=== PATIENT | female | born 1990 | race Caucasian/White ===

== ENCOUNTER 2017-04-22 08:03 | Emergency (ER) | payer OTHER ==
[2017-04-22 09:12] LABS: BASO # 0.1 K/uL (0.0-0.2); BASO % 0.5 % (0.0-2.0); EOS # 0.1 K/uL (0.0-0.7); HEMOGLOBIN 11.2 g/dL (11.0-16.0); LYMPH # 1.8 K/uL (1.0-4.3); LYMPH % 19.4 % (20.0-40.0); MEAN CELL VOLUME 80.5 fL (81.0-99.0); MEAN CORPUSCULAR HEMOGLOBIN 27.6 pg (27.0-31.0); MEAN CORPUSCULAR HGB CONC 34.3 g/dL (33.0-37.0); MEAN PLATELET VOLUME 10.3 fL (7.2-11.7); MONO # 0.5 K/uL (0.0-0.8); MONO % 5.7 % (0.0-10.0); NEUT # 6.8 K/uL (1.8-7.0); NEUT % 73.4 % (50.0-75.0); NRBC % 0.2 % (0.0-2.0); RBC 4.05 Mil/uL (3.80-5.20); RED CELL DISTRIBUTION WIDTH 15.1 % (11.5-14.5); WHITE BLOOD COUNT 9.3 K/uL (4.8-10.8)
[2017-04-22 09:17] LABS: SQUAMOUS EPITHIAL 4 /hpf (0-5); URINE BILIRUBIN NEGATIVE (NEGATIVE); URINE BLOOD NEGATIVE (NEGATIVE); URINE CLARITY Hazy (Clear); URINE COLOR Yellow (YELLOW); URINE GLUCOSE (UA) NORMAL (Normal); URINE LEUKOCYTE ESTERASE NEG Leu/uL (Negative); URINE NITRATE NEGATIVE (NEGATIVE); URINE PROTEIN NEGATIVE (NEGATIVE); URINE UROBILINOGEN NORMAL mg/dL (0.2-1.0)
[2017-04-22 09:23] LABS: ALB/GLOB RATIO 0.9 (1.0-2.1); ALBUMIN 3.5 g/dL (3.5-5.0); ALT/SGPT 20 U/L (9-52); AST/SGOT 15 U/L (14-36); BLOOD UREA NITROGEN 7 mg/dL (7-17); CALCIUM 9.1 mg/dl (8.6-10.4); GFR AFRICAN-AMERICAN > 60; GFR NON-AFRICAN AMERICAN > 60; URIC ACID 4.1 mg/dL (2.2-7.5)
[2017-04-22 09:30] LABS: PROTHROMBIN TIME 10.8 SECONDS (9.7-12.2)
[2017-04-22 14:40] VITALS: BP 124/90; PULSE 81; RESP 18; TEMP 97.8; O2SAT 100
--- NOTE | 2017-04-22 21:34 | OBHP ---
Datetime: 04/22/2017 08:59 Admit Comment, IP Provider: CC: "Dr. Sol told me to come in for elevated blood pressure." HPI: Patient is a 27 year old female (NORBETRO: 05/02/17, FDLMP: 07/26/16) at 38 weeks and 4 days who is presenting today after seeing Dr. Sol in his office. She was noted to have an elevated blood pr essure and he asked her to come to the hospital for evaluation. She denies any headache, changes in v ision, blurry vision, light headeness, or abdominal pain. Patient has been feeling the baby move. Pat ient denies contractions or vaginal bleeding/discharge. 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 Sol's office 1. afebrile, stable 2. EFM and TOCO 3. f/u labs- CBC, CMP, LDH, Coags, Uric acid, Urinalysis 4. monitor bp Nereyda Ren, PGY1 0945 hours: labs resulted - all wnl; urine protein negative. BP 132/86; 128/90, 122/87. This all D /W Dr. Sol. Patient is cleared for discharge home. F/U with him in one week. S/S pre-eclampsia and labor reviewed. Extremities - PN: Normal Abdomen - PN: Normal Lungs - PN: Normal Heart - PN: Normal General - PN: Normal Comments, ACOG Physical Exam: Abdomen: nontender, fundus firm at 37cm Vital Signs Provider: Reviewed
== END 2017-04-22 10:12 | disposition home or self-care (01) ==
LOC: C.EROB 08:03
DX: O26.893 Other specified pregnancy related conditions, third trimester (principal); R03.0 Elevated blood-pressure reading, without diagnosis of hypertension; Z3A.38 38 weeks gestation of pregnancy

== ENCOUNTER 2017-05-04 11:00 | Inpatient (IN) | payer OTHER ==
[2017-05-04] MEDS ORDERED: Lactated Ringer's 1,000 ML IV SCH ×2 (11:45)
--- NOTE | 2017-05-04 12:12 | OBHP ---
Datetime: 05/04/2017 11:48 IP Adm Impression: Postterm, intrauterine ; No Active Labor; Intact Membranes IP Admit Plan: Admit to unit; Initiate labor protocol IP Admit Plan Other: Cervical ripening Admit Comment, IP Provider: 27 y.o. , LMP 07/26/16, NORBERTO 05/02/17, EGA 40w 2d reports abdominal ti ghtening/ discomfort. (+) AFM; denies LOF, VB. care: Dr. Sol: noted for evaluation for ab dominal itchihng and concern for elevated BP reading approximately 1 month ago. Currently, denies he adaches, blurred vision, epigastric or RUQ pain. Deines any significant weight gain in the space of 1 week intervals. P Ob: Primip P TUNNEL MINER: 12 x 28 x 7. Denies h/o Abnormal Pap, ovarian cysts, fibroids or STIs PMH: denies PSH: denies NKDA Meds: PNV; iron - QD Soc Hx: denies tobacco, illicit drug or EtOH use. x 3 years. Works as a pharmacist @ [employer] Fam Hx: Mother alive 53 - no med issues. Father alive 62 - dyslipidemia. No knonwn fam h/l cancer. P.E.: as above. Mildly obese in NAD. Awake, alert, oriented to time, person and place. Pleasant a nd cooperative. Accompanied by Assessment: 27 y.o. P0, 40w 2d, prolonged latent phase of labor. High normal BP noted. Category 1 tracing. D/W patient: cervical ripening, possible augmentation, pain management - patient receptiv e to epidural. Patient is clinically stable. Plan: 1) Admit 2) NPO 3) Admission labs 4) Continuous EFM 5) Cervidil 6) Possible pitocin 7) Probable epidrual 8) Anticipate vaginal delviery - as per, and discussed with, Dr. Sol Addendum: 1210 hours: cervidil placed in posterior vaginal vault. Pelvic Type - PN: Adequate Extremities - PN: Normal Abdomen - PN: Normal Back - PN: Normal Breast - PN: Not Done Lungs - PN: Normal Heart - PN: Normal Thyroid - PN: Not Done Neurologic - PN: Normal HEENT - PN: Normal General - PN: Normal Weight - Estimated: 3405 Presentation-Admit: Vertex FHR - Baseline A Provider: 135 Contraction Comments Provider: irregular Comments, ACOG Physical Exam: Abdomen: Gravid. Soft. Non tender in all quadrants. Fundal height 39 cm All other systems reviewed and are negative Gestation - Est Wks by US: 40w 2d IP Hx Assessment: The History has been Reviewed and is Current EGA AdmitDate IP: 40.2 Vital Signs Provider: Reviewed IP Chief Complaint: Maternal discomfort NICHD Variability Prov Fetus A: Moderate 6-25bpm NICHD Accel Fetus A IP Provider: 15X15 FHR Category Provider Fetus A: Category I NICHD Decel Fetus A IP Provider: None Dilatation, Provider: 1-2 Effacement, Provider: 30 Station, Provider: -3 Genitourinary Exam: Normal DTRs - PN: Normal
[2017-05-04 12:23] LABS: BASO % 0.5 % (0.0-2.0); EOS # 0.1 K/uL (0.0-0.7); EOS % 0.8 % (0.0-4.0); HEMOGLOBIN 11.2 g/dL (11.0-16.0); LYMPH # 1.4 K/uL (1.0-4.3); LYMPH % 18.8 % (20.0-40.0); MEAN CELL VOLUME 81.3 fL (81.0-99.0); MEAN CORPUSCULAR HEMOGLOBIN 28.2 pg (27.0-31.0); MEAN CORPUSCULAR HGB CONC 34.7 g/dL (33.0-37.0); MEAN PLATELET VOLUME 10.3 fL (7.2-11.7); MONO # 0.4 K/uL (0.0-0.8); NEUT # 5.5 K/uL (1.8-7.0); NEUT % 73.9 % (50.0-75.0); NRBC % 0.1 % (0.0-2.0); RBC 3.98 Mil/uL (3.80-5.20); RED CELL DISTRIBUTION WIDTH 15.8 % (11.5-14.5); WHITE BLOOD COUNT 7.5 K/uL (4.8-10.8)
[2017-05-04 12:36] LABS: SQUAMOUS EPITHIAL 17 /hpf (0-5); URINE BACTERIA OCC (<OCC); URINE BILIRUBIN NEGATIVE (NEGATIVE); URINE BLOOD NEGATIVE (NEGATIVE); URINE CLARITY Turbid (Clear); URINE COLOR Yellow (YELLOW); URINE GLUCOSE (UA) NORMAL (Normal); URINE LEUKOCYTE ESTERASE 2+ Leu/uL (Negative); URINE NITRATE NEGATIVE (NEGATIVE); URINE PROTEIN 2+ mg/dL (NEGATIVE)
[2017-05-04 12:50] LABS: ALB/GLOB RATIO 0.9 (1.0-2.1); ALBUMIN 3.4 g/dL (3.5-5.0); ALT/SGPT 18 U/L (9-52); AST/SGOT 18 U/L (14-36); BLOOD UREA NITROGEN 7 mg/dL (7-17); CALCIUM 8.7 mg/dl (8.6-10.4); GFR AFRICAN-AMERICAN > 60; GFR NON-AFRICAN AMERICAN > 60
[2017-05-04 15:16] LABS: URIC ACID 5.2 mg/dL (2.2-7.5)
[2017-05-04 15:28] LABS: INR 0.9; PROTHROMBIN TIME 10.4 SECONDS (9.7-12.2)
--- NOTE | 2017-05-04 22:44 | OBPN ---
Datetime: 05/04/2017 22:35 IP Procedures: Sterile Vag Exam IP Progress Plan: Continue present management; Augmentation; Anticipate Vaginal Delivery Membranes, Provider: Intact Contraction Comments Provider: irregular FHR - Baseline A Provider: 130 Gestation - Est Wks by US: 40w 2d IP Progress Note Comment: Cervidil fell out of vagina while patient on bed agrawal. Cervical exam: as above. Assessment: 27 y.o. P0, 40w 2d, IOL S/P cervidil - cervical change noted. Variable deceleration n oted - good recovery; good variability. Patient is clinically stable. Plan: 1) Pain medication, upon request 2) Start pitocin 3) Anticipate vaginal delivery - As per Dr. Sol Vital Signs Provider: Reviewed; Within Normal Limits NICHD Accel Fetus A IP Provider: 15X15 FHR Category Provider Fetus A: Category I NICHD Variability Prov Fetus A: Moderate 6-25bpm Dilatation, Provider: 2-3 Effacement, Provider: 50 Station, Provider: -3 NICHD Decel Fetus A IP Provider: Variable Datetime: 05/04/2017 11:48 Weight - Estimated: 3405 Presentation-Admit: Vertex
[2017-05-05] MEDS ORDERED: Oxytocin 30 UNIT 30 UNITS/500 ML BAG IV PRN ×2 (01:00)
[2017-05-05] MEDS ORDERED: Bupivacaine HCl/FentaNYL Cit 0 ML EPI ONE (07:41)
[2017-05-05] MEDS ORDERED: Bupivacaine HCl/FentaNYL Cit 100 ML EPI ONE (08:30)
[2017-05-05] MEDS ORDERED: Sodium Citrate/Citric Acid 15 ml Sol ONE (11:51)
[2017-05-05] MEDS ORDERED: Sodium Citrate/Citric Acid 15 ml Sol PO ONE (12:11)
[2017-05-05] MEDS ORDERED: Bupivacaine HCl 0.25% PF (10 ml) Inj ONE ×2 (12:24→13:23)
[2017-05-05] MEDS ORDERED: Lidocaine 2% MPF (5 ml) Inj ONE (12:24)
[2017-05-05] MEDS ORDERED: Morphine 1 mg/ml preservative-free Inj(Duramorph) ONE (12:43)
[2017-05-05] MEDS ORDERED: Oxytocin 20 units in LR 2,000 ML IV ONE (12:48)
[2017-05-05] MEDS ORDERED: Oxytocin 10 Units/ml Inj ONE (12:48)
[2017-05-05] MEDS ORDERED: cefOXitin 2 GM in Sodium Chloride 0.9% 100 ML IVPB ONE (13:00)
[2017-05-05] MEDS ORDERED: cefOXitin IV 2 gm in Dextrose 2 GM/50 ML BAG IVPB ONE (13:00)
[2017-05-05] MEDS ORDERED: Midazolam 2 MG/2 ML VIAL ONE (13:34)
[2017-05-05] MEDS ORDERED: Ketamine 50 mg/ml Inj (10 ml) ONE (13:34)
[2017-05-05] MEDS ORDERED: Oxycodone/Acetaminophen 5/325 mg Tab PO PRN ×2 (14:08)
[2017-05-05] MEDS ORDERED: Naloxone 0.4 mg/ml Inj (Adult) IVP PRN (14:25)
[2017-05-05] MEDS ORDERED: DiphenhydrAMINE 50 mg/ml Inj IVP PRN (14:25)
[2017-05-05] MEDS: Simethicone 80 mg Chewtab PO SCH ×2 (17:39→22:00)
[2017-05-05] MEDS ORDERED: cefOXitin IV 2 gm in Saline 2 GM in Sodium Chloride 0.9% 50 ML IV SCH (18:30)
[2017-05-05] MEDS ORDERED: cefOXitin 2 GM in Sodium Chloride 0.9% 100 ML IV SCH (20:00)
[2017-05-05] MEDS: cefOXitin 2 GM in Sodium Chloride 0.9% 100 ML IV SCH (22:19)
--- NOTE | 2017-05-05 23:40 | HP ---
HISTORY OF PRESENT ILLNESS: The patient is a 27-year-old female 1, para 0 with due date of 05/02/2017, at 40 weeks 5 days, who is undergoing an elective induction. The patient started developing slight decelerations at 3 cm with poor progress in labor. The patient is undergoing lower segment section for failure to progress and a category 2 tracing. course has been essentially unremarkable. CURRENT MEDICATIONS: Vitafol Ultra one tablet daily. MEDICAL HISTORY: Unremarkable. SOCIAL HISTORY: She does not smoke or drink. PHYSICAL EXAMINATION: VITAL SIGNS: Her blood pressure is 110/70, pulse is 72, respiratory rate of 20, temperature is 98.8. HEAD, EYES, EARS,NOSE AND THROAT: Examinations are within normal. CHEST: Clear. CARDIAC: Reveals normal heart sounds without any murmurs. LUNGS: Clear. BREASTS: Revealed no masses. ABDOMEN: Soft. Symphyseal-fundal height is 38 cm, longitudinal lie vertex. heart tones are normal. PELVIC: Cervix is 3 cm, 80% effaced, -2 station, clear fluid. ADMITTING DIAGNOSES: Intrauterine at 40 weeks 5 days with failure to progress, nonreassuring tracing. PLAN: To perform a lower segment section. Prior to being scheduled for the surgical procedure, the patient underwent an informed consent, discussion and education session with me in the hospital lasting approximately 45 minutes, during which time I explained within understandable terms the following, the nature and extent of her disease process and the nature and extent of the contemplated operation. Also explained were the risks and potential complications of the operative procedures to include, but not limited to infection, hemorrhage, deep vein thrombosis, atelectasis, pneumonia, pulmonary embolism, damage to the bladder, damage to the ureter, renal insufficiency, renal failure, wound infection, wound dehiscence, incisional hernia, keloid formation, damage to large and small intestine, damage to inferior vena cava and the aorta requiring extensive repair, anesthesia complications, electrolyte imbalance, possibility of , low scores, breathing difficulties in the baby and other complications that were discussed, but are not listed above. I also discussed with the patient the anticipated benefits and results of the surgery including a conservative estimate of the successful outcome. I discussed with the patient about the operation that are not accomplished. I informed the patient of the possibility of unanticipated pathology requiring a more extensive procedure. All of the questions from the patient were encouraged, welcomed and answered to her satisfaction. The patient was given the opportunity to store her own blood for using in autologous blood transfusion prenatally and she had declined. Albertina Cunha MD
--- NOTE | 2017-05-05 23:59 | OP ---
PROCEDURE DATE: 05/04/2017 PREOPERATIVE DIAGNOSES: Intrauterine at 40 weeks, category II tracing, failure to progress. POSTOPERATIVE DIAGNOSES: Intrauterine at 40 weeks, category II tracing, failure to progress. PROCEDURE: Lower segment section. FINDINGS: A live female infant, Apgars 9 at 1 minute and 9 at 5 minutes with normal tubes and ovaries. SURGEON: Albertina Cunha M.D. QA AUDITOR: Mukesh Florian MD. ANESTHESIA: Epidural. ESTIMATED BLOOD LOSS: 400 mL. COMPLICATIONS: Nil. DESCRIPTION OF PROCEDURE: After the risks, benefits, and alternatives of the planned procedures including but not limited to infection, hemorrhage, deep vein thrombosis, atelectasis, pneumonia, pulmonary embolism, damage to the bladder, damage to the ureter, renal insufficiency, renal failure, wound infection, wound dehiscence, incisional hernia, keloid formation, damage to large and small intestines, damage to inferior vena cava and aorta requiring extensive repair, anesthesia complications, electrolyte imbalance, possibility of , fluid overload, cerebral edema, air embolism, and other complications that were discussed, but are not listed above, have been explained to the patient and all her questions were answered and informed consent was obtained. The patient was taken to the operating room in a stable condition. Under suitable level of spinal analgesia, she was prepped and draped in a sterile fashion after having been placed in a dorsal lithotomy position. Under a suitable level of epidural analgesia, she was prepped and draped in a sterile fashion after having been placed in a supine position. The abdomen was entered through a Pfannenstiel-type incision and carried through the subcutaneous tissues to the fascia. Fascia was opened transversely and dissected off the rectus abdominis musculature. The rectus abdominis musculature was then in the midline to remove the parietal peritoneum, which was entered sharply and incised superiorly and inferiorly. The bladder peritoneum was then incised in a curvilinear fashion and dissected off the rectus abdominis musculature. The rectus abdominis musculature were then in the midline to remove the parietal peritoneum, which was entered sharply and incised superiorly and inferiorly. The bladder peritoneum was then incised in a curvilinear fashion and dissected off the lower uterine segment. The lower uterine segment was then entered through a curvilinear incision. Surgeon's fingers were inserted into the lower uterine segment to grasp the 's head, which was lying in a right occipital anterior position. The head was easily delivered, nose and mouth was suctioned free of amniotic fluid, and the remainder of the was delivered without any difficulty. Cord was doubly clamped and cut and the baby was handed over to the pediatricians who were in attendance. Of note, at this point was that the baby had an extremely short umbilical cord likely causing the decelerations, which were noticed . Cord was doubly clamped, cut, and handed over to the pediatricians who were in attendance. Cord blood was collected with Pitocin running, placenta was manually removed. The endometrium was then cleaned and free of remaining membranes and clots. The uterine incision was then closed in layers with the first layer being a running interlocking layer using #1 chromic and the second layer being used to imbricate the first layer. Hemostasis was good. The bladder peritoneum was then reapproximated using a running suture of 2-0 chromic. Peritoneal cavity was then irrigated using copious amounts of saline. The saline was evacuated. The abdomen was then closed in layers with 0 chromic to the parietal peritoneum. Rectus muscles were reapproximated using interrupted sutures of 0 plain. The initial skin incision was reapproximated using 4-0 Vicryl in a subcuticular fashion. Estimated blood loss for the procedure was 400 mL. Pad, needle, and instrument counts were correct x2. There were no complications. Albertina Cunha MD
[2017-05-06] MEDS: cefOXitin 2 GM in Sodium Chloride 0.9% 100 ML IV SCH ×2 (07:24→14:28)
[2017-05-06 08:19] LABS: BASO % 0.3 % (0.0-2.0); EOS % 0.2 % (0.0-4.0); HEMOGLOBIN 9.6 g/dL (11.0-16.0); LYMPH # 1.2 K/uL (1.0-4.3); MEAN CELL VOLUME 80.7 fL (81.0-99.0); MEAN CORPUSCULAR HEMOGLOBIN 28.4 pg (27.0-31.0); MEAN CORPUSCULAR HGB CONC 35.1 g/dL (33.0-37.0); MEAN PLATELET VOLUME 10.1 fL (7.2-11.7); MONO # 0.4 K/uL (0.0-0.8); MONO % 4.4 % (0.0-10.0); NEUT # 8.1 K/uL (1.8-7.0); NEUT % 83.1 % (50.0-75.0); NRBC % 0.1 % (0.0-2.0); RBC 3.37 Mil/uL (3.80-5.20); RED CELL DISTRIBUTION WIDTH 15.9 % (11.5-14.5); WHITE BLOOD COUNT 9.8 K/uL (4.8-10.8)
[2017-05-06] MEDS: Enoxaparin 40 mg Syringe SC SCH (10:42)
[2017-05-06] MEDS: Simethicone 80 mg Chewtab PO SCH ×3 (10:43→22:08)
--- NOTE | 2017-05-06 11:44 | OBPN ---
Datetime: 05/05/2017 09:13 IP Progress Impression: Reassuring heart rate IP Procedures: Artificial ROM; Sterile Vag Exam IP Progress Plan: Continue present management FHR - Baseline A Provider: 140 Gestation - Est Wks by US: 40.2 Presentation-Admit: Vertex IP Progress Note Comment: ROM done at the request of Dr Sol. Clear fluid. NICHD Accel Fetus A IP Provider: 15X15 FHR Category Provider Fetus A: Category I NICHD Variability Prov Fetus A: Moderate 6-25bpm Dilatation, Provider: 2-3 Effacement, Provider: 70 Station, Provider: -3 NICHD Decel Fetus A IP Provider: Early
[2017-05-06] MEDS ORDERED: Bisacodyl 5mg EC Tab PO ONE (14:09)
[2017-05-07] MEDS: Enoxaparin 40 mg Syringe SC SCH (09:30)
[2017-05-07] MEDS: Simethicone 80 mg Chewtab PO SCH ×4 (09:39→21:46)
[2017-05-08 08:38] VITALS: BP 109/69; PULSE 98; RESP 18; TEMP 98.1
[2017-05-08 18:11] VITALS: O2SAT 98
== END 2017-05-08 14:08 | disposition home or self-care (01) | DRG 766 ==
LOC: C.EROB 11:00 → C.4D 11:30 → C.4M 05-05 16:35
PROVIDERS: ADMIT Obstetrics & Gynecology Reproductive Endocrinology; ATTEND Obstetrics & Gynecology Reproductive Endocrinology
PROC: 10D00Z1 Extraction of Products of Conception, Low, Open Approach (ICD-10-PCS; principal; 2017-05-04)
DX: O76 Abnormality in fetal heart rate and rhythm complicating labor and delivery (principal); O48.0 Post-term pregnancy; O69.3XX0 Labor and delivery complicated by short cord, not applicable or unspecified; O62.2 Other uterine inertia; O63.0 Prolonged first stage (of labor); Z37.0 Single live birth; Z3A.40 40 weeks gestation of pregnancy